=== PATIENT | female | born 1985 | race American Indian/Alaskan Native ===

== ENCOUNTER 2017-02-17 10:16 | Emergency (ER) | payer OTHER ==
[2017-02-17 10:25] VITALS: BP 113/80
--- NOTE | 2017-02-17 13:01 | Emergency Department Report ---
- General Chief Complaint: Upper Respiratory Infection Stated Complaint: COUGHING, CHEST CONGESTION Time Seen by Provider: 02/17/17 12:52 Source: patient Mode of arrival: Ambulatory Limitations: No Limitations - History of Present Illness Initial Comments: pt is a 31 y/o aaf with nmh who presents for cough , head and chest congestion x 1 week now with bilat ear and sinus pain , pt endorse noc fever and cough preventing sleep at night, Complaint: fever, cough, sore throat, rhinorrhea, nasal congestion, sinus pain Onset/Timin -: week(s) Severity: moderate Severity scale (0 -10): 5 Quality: sharp Consistency: constant Improves With: nothing Worsens With: activity, changing head position Associated Symptoms: fever, chills, myalgias, rhinorrhea, nasal congestion, sore throat, cough, nausea, ear pain. denies: vomiting, diarrhea, dysuria, rash , confusion, epistaxis, hoarseness Treatments Prior to Arrival: none - Related Data Previous Rx's Medication Instructions Recorded Last Taken Type Amoxicillin 500 mg PO TID #30 capsule 02/17/17 Unknown Rx Guaifenesin/Pseudoephedrne HCl 1 each PO BID PRN #24 tab.er.12h 02/17/17 Unknown Rx [Mucinex D ER 1,200-120 mg Tab] Ibuprofen [Motrin 800 MG tab] 800 mg PO Q8HR PRN #30 tablet 02/17/17 Unknown Rx Allergies Allergy/AdvReac Type Severity Reaction Status Date / Time No Known Allergies Allergy Verified 02/17/17 10:19 ED Review of Systems ROS: Stated complaint: COUGHING, CHEST CONGESTION Other details as noted in HPI Constitutional: denies: chills, fever Eyes: denies: eye pain, eye discharge, vision change ENT: ear pain, throat pain, congestion. denies: dental pain, hearing loss, epistaxis Respiratory: cough. denies: orthopnea, shortness of breath, wheezing Cardiovascular: denies: chest pain, palpitations, dyspnea on exertion, syncope, paroxysmal nocturnal dyspnea Endocrine: no symptoms reported Gastrointestinal: denies: abdominal pain, nausea, diarrhea Genitourinary: denies: urgency, dysuria, discharge Musculoskeletal: denies: back pain, joint swelling, arthralgia Skin: denies: rash, lesions Neurological: denies: headache, weakness, paresthesias, vertigo Psychiatric: denies: anxiety, depression Hematological/Lymphatic: denies: easy bleeding, easy bruising ED Past Medical Hx - Past Medical History Previous Medical History?: No Additional medical history: Patient smokes one pack every 3 days and does not take control pills. Ectopic - Surgical History Hx Breast Surgery: Yes Additional Surgical History: tumor removed from right breast, and x 1. ECTOPIC ; RIGHT TUBE REMOVED - Social History Smoking Status: Current Every Day Smoker Substance Use Type: Alcohol, Marijuana - Medications Home Medications: Home Medications Medication Instructions Recorded Confirmed Last Taken Type Amoxicillin 500 mg PO TID #30 capsule 02/17/17 Unknown Rx Guaifenesin/Pseudoephedrne HCl 1 each PO BID PRN #24 tab.er.12h 02/17/17 Unknown Rx [Mucinex D ER 1,200-120 mg Tab] Ibuprofen [Motrin 800 MG tab] 800 mg PO Q8HR PRN #30 tablet 02/17/17 Unknown Rx ED Physical Exam - General Limitations: No Limitations General appearance: alert, in no apparent distress - Head Head exam: Present: atraumatic, normocephalic - Eye Eye exam: Present: normal appearance, PERRL, EOMI Pupils: Present: normal accommodation - ENT ENT exam: Present: mucous membranes moist - Expanded ENT Exam Expanded TM/Canal exam: Erythema: Right TM, Left TM, Effusion: Right TM, Left TM, Canal Tenderness: Right TM, Left TM Mouth exam: Present: tongue normal, other (clear post nasal drip ). Absent: trismus Throat exam: Positive: tonsillar erythema. Negative: tonsillar exudate, R peritonsillar mass, L peritonsillar mass - Neck Neck exam: Present: normal inspection, full ROM. Absent: tenderness, lymphadenopathy, thyromegaly - Respiratory Respiratory exam: Present: normal lung sounds bilaterally. Absent: respiratory distress, wheezes, rhonchi, stridor, chest wall tenderness - Cardiovascular Cardiovascular Exam: Present: regular rate, normal rhythm. Absent: systolic murmur, diastolic murmur, rubs, gallop - GI/Abdominal GI/Abdominal exam: Present: soft - Rectal Rectal exam: Present: deferred - Extremities Exam Extremities exam: Present: normal inspection - Back Exam Back exam: Present: normal inspection, full ROM. Absent: CVA tenderness (R), CVA tenderness (L) - Neurological Exam Neurological exam: Present: alert, oriented X3, CN II-XII intact, normal gait, reflexes normal - Psychiatric Psychiatric exam: Present: normal affect, normal mood - Skin Skin exam: Present: warm, dry, intact, normal color. Absent: rash ED Course Vital Signs 02/17/17 10:20 Temperature 98.3 F Pulse Rate 66 Respiratory 17 Rate Blood Pressure 113/80 O2 Sat by Pulse 100 Oximetry ED Medical Decision Making - Medical Decision Making pt is a 31 y/o aaf with nmn who presents for uri symptoms x 1 week now with fever chills bilat ear pain and postnasal drip preventing sleep exam: bilat TM erythema and pain ,no pharynx exudate no stridor uvula midline airway is patent , lungs clear bilat all lobes no wheezing will treat for AOM, URI , pt will follow up with primary care in 1-2 weeks if symptoms not improved. pt verbalized agreement and understanding of same. Critical care attestation.: If time is entered above; I have spent that time in minutes in the direct care of this critically ill patient, excluding procedure time. ED Disposition Clinical Impression: URI with cough and congestion AOM (acute otitis media) Qualifiers: Otitis media type: serous Laterality: bilateral Recurrence: not specified as recurrent Qualified Code(s): H65.03 - Acute serous otitis media, bilateral Disposition: TO HOME OR SELFCARE Is pt being admited?: No Does the pt Need Aspirin: No Condition: Good Instructions: Otitis Media (ED), Upper Respiratory Infection (ED) Prescriptions: Amoxicillin 500 mg PO TID #30 capsule Guaifenesin/Pseudoephedrne HCl [Mucinex D ER 1,200-120 mg Tab] 1 each PO BID PRN #24 tab.er.12h PRN Reason: cough congestion Ibuprofen [Motrin 800 MG tab] 800 mg PO Q8HR PRN #30 tablet PRN Reason: pain / fever Referrals: PRIMARY CARE,MD [Primary Care Provider] - 3-5 Days Forms: Work/School Release Form(ED) Time of Disposition: 13:09
== END 2017-02-17 13:13 | disposition home or self-care (01) ==
LOC: ED 10:16
DX: J06.9 Acute upper respiratory infection, unspecified (principal); H66.93 Otitis media, unspecified, bilateral; F17.210 Nicotine dependence, cigarettes, uncomplicated; F12.10 Cannabis abuse, uncomplicated
CPT/HCPCS: 99282

== ENCOUNTER 2017-03-03 14:01 | Emergency (ER) | payer SELFPAY ==
[2017-03-03 14:36] VITALS: BP 125/85
== END 2017-03-03 15:30 | disposition left against medical advice (07) ==
LOC: ED 14:01
DX: R10.9 Unspecified abdominal pain (principal); R11.10 Vomiting, unspecified; R19.7 Diarrhea, unspecified; Z53.21 Procedure and treatment not carried out due to patient leaving prior to being seen by health care provider

== ENCOUNTER 2017-03-04 07:42 | Emergency (ER) | payer SELFPAY ==
[2017-03-04 07:56] VITALS: BP 114/77
[2017-03-04 08:21] LABS: Bacteria,Urine 1+ /HPF (Negative); Bilirubin,Urine NEG (Negative); Blood,Urine NEG (Negative); Ketones,Urine TR mg/dL (Negative); Leukocyte Esterase,Urine NEG (Negative); Mucus,Urine 2+ /HPF; Nitrite,Urine NEG (Negative); Protein,Urine <15 mg/dL mg/dL (Negative)
[2017-03-04 08:41] LABS: Basophils % (Auto) 1.5 % (0.0-1.8); Eosinophils % (Auto) 3.8 % (0.0-4.3); Hematocrit 37.9 % (30.3-42.9); Hemoglobin 12.6 gm/dl (10.1-14.3); Mean Corpuscular HGB Conc 33 % (30-34); Mean Corpuscular Hemoglobin 26 pg (28-32); Mean Corpuscular Volume 79 fl (79-97); Platelet Count 367 K/mm3 (140-440); Red Blood Count 4.78 M/mm3 (3.65-5.03); Red Cell Distribution Width 12.9 % (13.2-15.2); White Blood Count 4.5 K/mm3 (4.5-11.0)
[2017-03-04 08:55] LABS: Alanine Aminotransferase 7 units/L (7-56); Albumin 3.9 g/dL (3.9-5); Albumin/Globulin Ratio 1.4 %; Alkaline Phosphatase 61 units/L (35-129); Anion Gap 15 mmol/L; Calcium 8.9 mg/dL (8.4-10.2); Carbon Dioxide 25 mmol/L (22-30); Chloride 101.3 mmol/L (98-107); Glucose 86 mg/dL (65-100); Lipase 19 units/L (13-60); Potassium 3.6 mmol/L (3.6-5.0); Sodium 138 mmol/L (137-145); Total Protein 6.6 g/dL (6.3-8.2)
[2017-03-04 09:49] LABS: BUN/Creatinine Ratio 14.28; Blood Urea Nitrogen 10 mg/dL (7-17)
--- NOTE | 2017-03-04 10:39 | Emergency Department Report ---
- General Chief complaint: Weakness Stated complaint: Abd pain,vomiting Time Seen by Provider: 03/04/17 10:25 Source: patient Mode of arrival: Ambulatory Limitations: No Limitations - History of Present Illness Initial comments: 31-year-old female here with complaint of weakness. Patient had nausea and vomiting that started on Tuesday. She had some diarrhea that continued on Tuesday. She feels nauseous right now but otherwise has no other complaints other than the mild weakness all over. No other medical problems. She denies any fevers chills. MD Complaint: generalized weakness -: Sudden Location: generalized Improves with: none Worsens with: none Associated Symptoms: denies other symptoms - Related Data Previous Rx's Medication Instructions Recorded Last Taken Type Amoxicillin 500 mg PO TID #30 capsule 02/17/17 Unknown Rx Guaifenesin/Pseudoephedrne HCl 1 each PO BID PRN #24 tab.er.12h 02/17/17 Unknown Rx [Mucinex D ER 1,200-120 mg Tab] Ibuprofen [Motrin 800 MG tab] 800 mg PO Q8HR PRN #30 tablet 02/17/17 Unknown Rx Ondansetron [Zofran Odt] 4 mg PO Q8HR #10 tab.rapdis 03/04/17 Unknown Rx Allergies Allergy/AdvReac Type Severity Reaction Status Date / Time No Known Allergies Allergy Verified 02/17/17 10:19 ED Review of Systems ROS: Stated complaint: Abd pain,vomiting Other details as noted in HPI Comment: All other systems reviewed and negative Constitutional: weakness. denies: chills, fever Eyes: denies: eye pain, eye discharge, vision change ENT: denies: ear pain, throat pain Respiratory: denies: cough, shortness of breath, wheezing Cardiovascular: denies: chest pain, palpitations Endocrine: no symptoms reported Gastrointestinal: abdominal pain, nausea, vomiting, diarrhea Genitourinary: denies: urgency, dysuria, discharge Musculoskeletal: denies: back pain, joint swelling, arthralgia Skin: denies: rash, lesions Neurological: denies: headache, weakness, paresthesias Psychiatric: denies: anxiety, depression Hematological/Lymphatic: denies: easy bleeding, easy bruising ED Past Medical Hx - Past Medical History Previous Medical History?: Yes Additional medical history: Patient smokes one pack every 3 days and does not take control pills. Ectopic - Surgical History Past Surgical History?: Yes Hx Breast Surgery: Yes Additional Surgical History: tumor removed from right breast, and x 1. ECTOPIC ; RIGHT TUBE REMOVED - Social History Smoking Status: Current Every Day Smoker Substance Use Type: Alcohol, Marijuana - Medications Home Medications: Home Medications Medication Instructions Recorded Confirmed Last Taken Type Amoxicillin 500 mg PO TID #30 capsule 02/17/17 Unknown Rx Guaifenesin/Pseudoephedrne HCl 1 each PO BID PRN #24 tab.er.12h 02/17/17 Unknown Rx [Mucinex D ER 1,200-120 mg Tab] Ibuprofen [Motrin 800 MG tab] 800 mg PO Q8HR PRN #30 tablet 02/17/17 Unknown Rx Ondansetron [Zofran Odt] 4 mg PO Q8HR #10 tab.rapdis 03/04/17 Unknown Rx ED Physical Exam - General Limitations: No Limitations General appearance: alert, in no apparent distress - Head Head exam: Present: atraumatic, normocephalic - Eye Eye exam: Present: normal appearance - ENT ENT exam: Present: normal orophraynx, mucous membranes dry - Neck Neck exam: Present: normal inspection. Absent: lymphadenopathy, thyromegaly - Respiratory Respiratory exam: Present: normal lung sounds bilaterally. Absent: respiratory distress, wheezes - Cardiovascular Cardiovascular Exam: Present: regular rate, normal rhythm, normal heart sounds. Absent: systolic murmur, diastolic murmur, rubs, gallop - GI/Abdominal GI/Abdominal exam: Present: soft, normal bowel sounds. Absent: distended, tenderness, guarding, rebound - Extremities Exam Extremities exam: Present: normal inspection - Back Exam Back exam: Present: normal inspection - Neurological Exam Neurological exam: Present: alert, oriented X3 - Psychiatric Psychiatric exam: Present: normal affect, normal mood - Skin Skin exam: Present: warm, dry, intact, normal color. Absent: rash ED Course Vital Signs 03/04/17 07:52 Temperature 98.4 F Pulse Rate 73 Respiratory 18 Rate Blood Pressure 114/77 O2 Sat by Pulse 100 Oximetry ED Medical Decision Making - Lab Data Result diagrams: 03/04/17 08:24 03/04/17 08:24 Laboratory Results - last 24 hr 03/04/17 03/04/17 03/04/17 07:50 08:24 08:24 WBC 4.5 RBC 4.78 Hgb 12.6 Hct 37.9 MCV 79 MCH 26 L MCHC 33 RDW 12.9 L Plt Count 367 Lymph % (Auto) 29.1 [place] % (Auto) 10.1 H Eos % (Auto) 3.8 Baso % (Auto) 1.5 Lymph # 1.3 [place] # 0.4 Eos # 0.2 Baso # 0.1 Seg Neutrophils % 55.5 Seg Neutrophils # 2.5 Sodium 138 Potassium 3.6 Chloride 101.3 Carbon Dioxide 25 Anion Gap 15 BUN 10 Creatinine 0.7 Estimated GFR > 60 BUN/Creatinine Ratio 14.28 Glucose 86 Calcium 8.9 Total Bilirubin 0.60 AST 14 ALT 7 Alkaline Phosphatase 61 Total Protein 6.6 Albumin 3.9 Albumin/Globulin Ratio 1.4 Lipase 19 Urine Color Yellow Urine Turbidity Clear Urine pH 5.0 Ur Specific [place] 1.021 Urine Protein <15 mg/dl Urine Glucose (UA) Neg Urine Ketones Tr Urine Blood Neg Urine Nitrite Neg Urine Bilirubin Neg Urine Urobilinogen 2.0 Ur Leukocyte Esterase Neg Urine WBC (Auto) 2.0 Urine RBC (Auto) 5.0 U Epithel Cells (Auto) 7.0 Urine Bacteria (Auto) 1+ Urine Mucus 2+ - Medical Decision Making 31-year-old female with likely viral gastroenteritis. Labs are unremarkable. She appears mildly dehydrated but otherwise well. She states she is tolerating oral liquids. Plan discharge patient home with oral Zofran and a work note. Critical care attestation.: If time is entered above; I have spent that time in minutes in the direct care of this critically ill patient, excluding procedure time. ED Disposition Clinical Impression: Gastroenteritis Disposition: DC-01 TO HOME OR SELFCARE Is pt being admited?: No Condition: Stable Instructions: Gastroenteritis (ED) Prescriptions: Ondansetron [Zofran Odt] 4 mg PO Q8HR #10 tab.rapdis Referrals: PRIMARY CARE, [Primary Care Provider] - 3-5 Days Forms: Work/School Release Form(ED)
== END 2017-03-04 10:52 | disposition home or self-care (01) ==
LOC: ED 07:42
DX: K52.9 Noninfective gastroenteritis and colitis, unspecified (principal); F12.10 Cannabis abuse, uncomplicated; F17.200 Nicotine dependence, unspecified, uncomplicated
CPT/HCPCS: 36415; 80053; 81001; 81025; 83690; 85025

== ENCOUNTER 2017-10-05 01:24 | Emergency (ER) | payer SELFPAY ==
[2017-10-05 01:51] VITALS: BP 122/76
--- NOTE | 2017-10-05 02:36 | XRay Report ---
FINAL REPORT EXAM: XR Right Foot CLINICAL INDICATIONS: RT FOOT PAIN/SWELLING FINDINGS: AP, lateral and oblique views of the right foot were acquired and demonstrate no fracture or malalignment of the right foot. No foreign body is seen. IMPRESSION: NO FRACTURE IS SEEN IN THE RIGHT FOOT
[2017-10-05] MEDS ORDERED: NORCO 7.5/325 PO ONE (03:54)
--- NOTE | 2017-10-05 03:59 | Emergency Department Report ---
ED Lower Extremity HPI - General Chief Complaint: Extremity Injury, Lower Stated Complaint: FOOT PAIN Time Seen by Provider: 10/05/17 03:53 Source: patient Mode of arrival: Ambulatory Limitations: No Limitations - History of Present Illness Initial Comments: 32-year-old -[place] female comes to the emergency room for pain and swelling of her right foot. Patient reports that she hit her foot against something earlier approximately 7 or 8:00. Patient reports that she is unable to bear weight and ambulating with crutches. Patient reports no past medical history currently takes no medication and has no known drug allergies. MD Complaint: foot injury -: hour(s) (7) Injury: Foot: Right (swelling and pain) Type of Injury: blunt Place: home Severity scale (0 -10): 9 Improves With: nothing Worsens With: weight bearing Context: direct blow - Related Data Previous Rx's Medication Instructions Recorded Last Taken Type Amoxicillin 500 mg PO TID #30 capsule 02/17/17 Unknown Rx Guaifenesin/Pseudoephedrne HCl 1 each PO BID PRN #24 tab.er.12h 02/17/17 Unknown Rx [Mucinex D ER 1,200-120 mg Tab] Ibuprofen [Motrin 800 MG tab] 800 mg PO Q8HR PRN #30 tablet 02/17/17 Unknown Rx Ondansetron [Zofran Odt] 4 mg PO Q8HR #10 tab.rapdis 03/04/17 Unknown Rx Naproxen [EC-Naprosyn] 500 mg PO BID PRN #20 tablet. 10/05/17 Unknown Rx Allergies Allergy/AdvReac Type Severity Reaction Status Date / Time No Known Allergies Allergy Verified 02/17/17 10:19 ED Review of Systems ROS: Stated complaint: FOOT PAIN Other details as noted in HPI Constitutional: denies: chills, fever Eyes: denies: eye pain, eye discharge, vision change ENT: denies: ear pain, throat pain Respiratory: denies: cough, shortness of breath, wheezing Cardiovascular: denies: chest pain, palpitations Endocrine: no symptoms reported Gastrointestinal: denies: abdominal pain, nausea, diarrhea Genitourinary: denies: urgency, dysuria, discharge Musculoskeletal: joint swelling (right foot pain), arthralgia (right foot pain) . denies: back pain Skin: denies: rash, lesions Neurological: denies: headache, weakness, paresthesias Psychiatric: denies: anxiety, depression Hematological/Lymphatic: denies: easy bleeding, easy bruising ED Past Medical Hx - Past Medical History Previous Medical History?: No Additional medical history: Patient smokes one pack every 3 days and does not take control pills. Ectopic - Surgical History Past Surgical History?: Yes Hx Breast Surgery: Yes Additional Surgical History: tumor removed from right breast 2007, x 1 2006. ECTOPIC ; RIGHT TUBE REMOVED - Social History Smoking Status: Never Smoker Substance Use Type: Alcohol - Medications Home Medications: Home Medications Medication Instructions Recorded Confirmed Last Taken Type Amoxicillin 500 mg PO TID #30 capsule 02/17/17 Unknown Rx Guaifenesin/Pseudoephedrne HCl 1 each PO BID PRN #24 tab.er.12h 02/17/17 Unknown Rx [Mucinex D ER 1,200-120 mg Tab] Ibuprofen [Motrin 800 MG tab] 800 mg PO Q8HR PRN #30 tablet 02/17/17 Unknown Rx Ondansetron [Zofran Odt] 4 mg PO Q8HR #10 tab.rapdis 03/04/17 Unknown Rx Naproxen [EC-Naprosyn] 500 mg PO BID PRN #20 tablet. 10/05/17 Unknown Rx ED Physical Exam - General Limitations: No Limitations General appearance: alert, in no apparent distress - Head Head exam: Present: atraumatic, normocephalic - Eye Eye exam: Present: normal appearance - ENT ENT exam: Present: mucous membranes moist - Neck Neck exam: Present: normal inspection - Expanded Lower Extremity Exam Right Hip exam: Present: full ROM Upper Leg exam: Present: normal inspection, full ROM Knee exam: Present: normal inspection, full ROM Lower Leg exam: Present: normal inspection, full ROM Ankle exam: Present: normal inspection, full ROM Foot/Toe exam: Present: tenderness (dorsum), swelling (dorsum). Absent: abrasion, laceration, ecchymosis, deformity, crepidus, dislocation, erythema, amputation, puncture wound Neuro vascular tendon exam: Present: no vascular compromise ED Course Vital Signs 10/05/17 01:46 Temperature 98.7 F Pulse Rate 77 Respiratory 18 Rate Blood Pressure 122/76 O2 Sat by Pulse 99 Oximetry ED Lower Extremity MDM - Medical Decision Making Patient's been evaluated by this provider fast track. Discussed the patient I will give her pain medication now and discharge her on naproxen 500 mg twice a day. She can use crutches until she is able to bear weight. Discussed the patient that her x-ray was negative for any fractures. Discussed the patient if symptoms persist or gets worse she can follow up with a primary care provider or orthopedics. Verbalized understanding. Critical care attestation.: If time is entered above; I have spent that time in minutes in the direct care of this critically ill patient, excluding procedure time. ED Disposition Clinical Impression: Pain in right foot Disposition: DC-01 TO HOME OR SELFCARE Is pt being admited?: No Does the pt Need Aspirin: No Condition: Stable Additional Instructions: Please take pain medication as prescribed. Continue with the crutches and advance her walking as tolerated. Continue with ice therapy. Symptoms persist or gets worse please follow up with her primary care provider or orthopedics. Prescriptions: Naproxen [EC-Naprosyn] 500 mg PO BID PRN #20 tablet.dr BARRIOS Reason: Pain Referrals: TRI KIMBROUGH MD [Primary Care Provider] - 3-5 Days EKATERINA HORNE MD [Staff Physician] - 3-5 Days [facility] [Provider Group] - 3-5 Days Forms: Work/School Release Form(ED), Accompanied Note
== END 2017-10-05 04:12 | disposition home or self-care (01) ==
LOC: ED 01:24
DX: M79.671 Pain in right foot (principal)
CPT/HCPCS: 99283